=== PATIENT | female | born 1985 | race Caucasian/White ===

== ENCOUNTER 2019-04-15 10:18 | Outpatient (CLI) | payer MEDICAID ==
[2019-04-15 10:54] LABS: ADD UMIC NO; UR ASCORBIC ACID NEGATIVE (NEGATIVE); UR BILIRUBIN (Dip) NEGATIVE (NEGATIVE); UR BLOOD (Dip) NEGATIVE (NEGATIVE); UR CLARITY CLEAR (CLEAR); UR COLOR STRAW (YELLOW); UR GLUCOSE (Dip) NEGATIVE (NEGATIVE); UR KETONES (Dip) NEGATIVE (NEGATIVE); UR LEUKOCYTE ESTERASE (Dip) NEGATIVE Leu/ul (NEGATIVE); UR NITRITE (Dip) NEGATIVE (NEGATIVE); UR SPECIFIC GRAVITY (Dip) 1.003 (1.003-1.030); UR TOTAL PROTEIN (Dip) NEGATIVE (NEGATIVE); UR UROBILINOGEN (Dip) NEGATIVE (NEGATIVE)
[2019-04-15] MEDS: CYCLOBENZAPRINE 10 MG TAB PO (11:39)
== END 2019-04-15 12:35 | disposition home or self-care (01) ==
LOC: OBT 10:18 → L-D 10:18 → OBT 12:35
DX: O36.8130 Decreased fetal movements, third trimester, not applicable or unspecified (principal); Z3A.30 30 weeks gestation of pregnancy
CPT/HCPCS: 76818; 81003

== ENCOUNTER 2019-06-22 21:11 | Inpatient (IN) | payer MEDICAID ==
[2019-06-22] MEDS ORDERED: LIDOCAINE 1% (MPF) 30 ML INJ INJ (22:30)
[2019-06-22] MEDS ORDERED: OXYTOCIN 30 UNITS/LR 500 ML IV (22:30)
[2019-06-22] MEDS ORDERED: BUTORPHANOL 2 MG INJ IV (22:30)
[2019-06-22] MEDS ORDERED: MISOPROSTOL 200 MCG TAB PR (22:30)
[2019-06-22] MEDS ORDERED: CARBOPROST 250 MCG INJ IM (22:30)
[2019-06-22] MEDS ORDERED: METHYLERGONOVINE 0.2 MG INJ IM (22:30)
[2019-06-22] MEDS ORDERED: IBUPROFEN 600 MG TAB PO (22:30)
[2019-06-22] MEDS: LACTATED RINGER'S 1,000 ML IV ×2 (22:58→23:33)
[2019-06-23] MEDS ORDERED: ONDANSETRON 4 MG INJ IV
[2019-06-23] MEDS ORDERED: DIPHENHYDRAMINE 50 MG INJ IV
[2019-06-23] MEDS ORDERED: NALOXONE (0.4 MG/ML) INJ IV
[2019-06-23] MEDS ORDERED: FENTAnyl 2MCG/ML-ROPIV 0.2% 100 ML BAG EPI
[2019-06-23] MEDS: MINERAL OIL LIGHT 10 ML VIAL TOP (04:20)
[2019-06-23] MEDS: OXYTOCIN 30 UNITS/LR 500 ML IV ×2 (04:28→04:30)
[2019-06-23] MEDS ORDERED: OXYCODONE/ASPIRIN (4.88/325) TAB PO ×2 (06:00)
[2019-06-23] MEDS ORDERED: CARBOPROST 250 MCG INJ IM (06:00)
[2019-06-23] MEDS ORDERED: METHYLERGONOVINE 0.2 MG INJ IM (06:00)
[2019-06-23] MEDS ORDERED: MISOPROSTOL 200 MCG TAB PR (06:00)
[2019-06-23] MEDS ORDERED: OXYTOCIN 30 UNITS/LR 500 ML IV (06:00)
[2019-06-23] MEDS: IBUPROFEN 600 MG TAB PO ×3 (06:00→18:10)
[2019-06-23] MEDS ORDERED: ZOLPIDEM 5 MG TAB PO (06:00)
[2019-06-23] MEDS: LANOLIN HPA 1 PKT TOP (07:45)
[2019-06-23] MEDS: WITCH HAZEL/GLYCERIN PAD PR (07:45)
[2019-06-23] MEDS: BENZOCAINE 20% 56 ML SPRAY TOP (07:45)
[2019-06-23] MEDS: SENNA/DOCUSATE NA (8.6MG/50MG) TAB PO ×2 (11:14→21:12)
[2019-06-24] MEDS: IBUPROFEN 600 MG TAB PO ×5 (00:31→23:46)
[2019-06-24] MEDS: SENNA/DOCUSATE NA (8.6MG/50MG) TAB PO ×2 (09:10→23:46)
[2019-06-25] MEDS: IBUPROFEN 600 MG TAB PO ×2 (05:48→12:10)
[2019-06-25] MEDS: DIPHTH/TET/ACEL PERTUSS (ADULT) 0.5 ML VIAL IM* (08:15)
[2019-06-25] MEDS: SENNA/DOCUSATE NA (8.6MG/50MG) TAB PO (08:53)
== END 2019-06-25 13:15 | disposition home or self-care (01) | DRG 807 ==
LOC: OBT 21:11 → PP1 06-24 20:56 → L-D 21:12 → MS1 06-23 05:48 → OBT 22:16 → L-D 22:16
PROC: 10E0XZZ Delivery of Products of Conception, External Approach (ICD-10-PCS; principal; 2019-06-23)
PROC: 0UQMXZZ Repair Vulva, External Approach (ICD-10-PCS; 2019-06-23)
DX: O71.82 Other specified trauma to perineum and vulva (principal); Z37.0 Single live birth; Z3A.40 40 weeks gestation of pregnancy
CPT/HCPCS: 62322; 80307; 85025; 85610; 85730; 86592; 86850; 86900; 86901; 87340